=== PATIENT | male | born 1985 | race Caucasian/White ===

== ENCOUNTER 2024-01-12 11:00 | Emergency (ER) | payer SELFPAY ==
[2024-01-12 11:07] VITALS: BP 112/62; PULSE 68; RESP 20; TEMP 97.7; BMI 32.4
== END 2024-01-12 11:47 | disposition home or self-care (01) ==
LOC: JER 11:00
DX: K42.9 Umbilical hernia without obstruction or gangrene (principal); Y93.B9 Activity, other involving muscle strengthening exercises
CPT/HCPCS: 99283-25